=== PATIENT | female | born 1965 | race Caucasian/White ===

== ENCOUNTER → 2018-12-02 09:41 | Outpatient (CLI) | payer OTHER, SELFPAY ==
[2018-12-02 09:39] VITALS: BMI 36.8
--- NOTE | 2018-12-02 09:46 | RAD_ITS ---
STUDY: X-RAY - PELVIS AND BILATERAL HIPS REASON FOR EXAM: Bilateral hip pain, right worse than left. TECHNIQUE: AP view of the pelvis.? 2 views of the right hip, and 2 views of the left hip were obtained. COMPARISON: None. FINDINGS: There is a small enthesophyte of the right greater trochanter. Normal bilateral iliac wings, sacroiliac joints and visualized sacrum. Normal bilateral superior and inferior pubic rami. Normal pubic symphysis. Normal bilateral ischial tuberosities. Normal visualized right femoral head. Normal right acetabulum. There is a bone island in the right acetabulum. Normal right hip joint. Normal visualized left femoral head. Normal left acetabulum. Normal left hip joint. RAD/Hips B/L min 2 views w/ Pelvis IMPRESSION: Small enthesophyte at the right greater trochanter. Otherwise, unremarkable x-ray examination of the pelvis and bilateral hips. Electronically Signed: Jimmy Gann MD at 14:51 EDT Tel , Service support ,
--- NOTE | 2018-12-02 09:46 | RAD_ITS ---
STUDY: X-RAY - LUMBAR SPINE REASON FOR EXAM: Female, 53 years old. Chronic low back and bilateral hip pain. TECHNIQUE: 5 view(s) of the lumbar spine were obtained including oblique views. COMPARISON: None FINDINGS: Normal lumbar lordosis. There is a minimal levoscoliosis of the lumbar spine. There is a normal alignment of the vertebrae. Normal vertebral bodies and endplates. Moderate degree of disc space narrowing at the L5-S1 level. There is an 8.1 mm calculus in the midpole calyx of the right kidney. RAD/L/S Spine Min 4 Views IMPRESSION: Degenerative changes of the spine, as detailed above. 8.1 mm mid pole calculus of the right kidney. Electronically Signed: Dane Haskins, at 13:04 EDT , Service support ,
== END ==
PROVIDERS: Referring Provider Orthopaedic Surgery; Visit Provider Orthopaedic Surgery
DX: M54.5 Low back pain (principal); M25.551 Pain in right hip; M25.552 Pain in left hip
CPT/HCPCS: 72110; 73521